=== PATIENT | female | born 1960 | race Caucasian/White ===

== ENCOUNTER 2018-07-26 06:05 | Day surgery (SDC) | payer BC ==
[~2018-07-26] VITALS: Ht 154.9 cm; Wt 71.0 kg
[~2018-07-26 06:05] MED LIST: CALC1TAB75 PO; ESTR1PAT7 TD; FLUT15.88 NS; MULT1TAB52 PO; PANT20TA2 PO
[2018-07-26] MEDS ORDERED: MORPHINE SULFATE 2 MG/ML VIAL. IV PRN (07:00)
[2018-07-26] MEDS ORDERED: ONDANSETRON PF 4 MG/2 ML VIAL. IV PRN (07:00)
[2018-07-26] MEDS ORDERED: IV RINGERS,LACTATED 1000ML 1,000 ML IV SCH (07:00)
[2018-07-26] MEDS ORDERED: fentaNYL PF VIAL 100 MCG/2 ML VIAL IV PRN (07:00)
[2018-07-26] MEDS ORDERED: HYDROmorphone 2 MG/ML VIAL IV PRN (07:00)
[2018-07-26] MEDS ORDERED: fentaNYL PF VIAL 100 MCG/2 ML VIAL ONE ×2 (07:17→08:46)
[2018-07-26] MEDS ORDERED: ROCURONIUM 50 MG/5 ML VIAL. ONE (07:17)
[2018-07-26] MEDS ORDERED: SEVOFLURANE 61 TO 120 MINUTES. IH ONE (07:18)
[2018-07-26] MEDS ORDERED: ONDANSETRON PF 4 MG/2 ML VIAL. ONE (07:18)
[2018-07-26] MEDS ORDERED: PROPOFOL 20 ML IV ONE (07:18)
[2018-07-26] MEDS ORDERED: LIDOCAINE 2% PF 5 ML VIAL. ONE (07:18)
[2018-07-26] MEDS ORDERED: MIDAZOLAM HCL/PF 2 MG/2 ML VIAL. ONE (07:19)
[2018-07-26] MEDS ORDERED: FAMOTIDINE 20 MG/2 ML VIAL ONE (07:40)
[2018-07-26] MEDS ORDERED: ePHEDrine PF IN SALINE 50 MG/10 ML SYRINGE. IV ONE (07:46)
[2018-07-26] MEDS ORDERED: KETOROLAC 30 MG/ML INJ FOR OR. INJ ONE (07:48)
[2018-07-26] MEDS ORDERED: ceFAZolin 2GM PREMIX 2 GM/50 ML BAG IV ONE (08:00)
[2018-07-26] MEDS ORDERED: PROCHLORPERAZINE 10 MG/2 ML VIAL. ONE (08:46)
--- NOTE | 2018-07-26 08:48 | PDOC4 ---
Operative Note Operative Note Operative Note: Preoperative Diagnosis: Ventral hernia Postoperative Diagnosis: Same Procedure: Ventral hernia repair with mesh Surgeon: Albaro Retention Manager: Selin VINCENT Anesthesia: Gen. EBL: 10 mL Specimen: None Drains: None Complications: None Indication: The patient is a 58-year-old female who was referred due to a ventral hernia located superior to the umbilicus. She was offered surgical treatment and we discussed the use of mesh. The risks of surgery were noted which include bleeding, infection, recurrence, pain, anesthetic risk, visceral injury, potential need for additional surgery or procedure. She understands and would like to proceed. Description: The patient was taken to the operating room and placed supine on the operating table. Gen. anesthesia was performed. The abdomen was prepped with ChloraPrep and draped with sterile towels, sheets, and an Ioban. A small vertical incision was made overlying the hernia which was superior to the umbilicus. Cautery dissection was carried down to the fascia. The edges of the fascial defect were clearly delineated and all scar tissue was mobilized. The peritoneal plane was developed with blunt dissection circumferentially around the periphery of the hernia defect. A medium sized Ventralex ST mesh was then placed in this newly formed plane. The mesh rested well providing full coverage and overlap in all directions. The mesh was sutured at the 12, 3, 6, 9:00 positions using 0 Prolene in a horizontal mattress fashion. The fascial edges were closed over the mesh with 0 Prolene. The deep subcutaneous layer was approximated with 0 Vicryl. The more superficial subcutaneous cutaneous tissues closed with 3-0 Vicryl and skin was closed with 4-0 Monocryl. Steri-Strips and a sterile dressing were applied. The patient tolerated the procedure well and was sent to the recovery room in stable condition. At the end of the case all counts were correct. ABEL RAMOS MD Jul 26, 2018 08:48
--- NOTE | 2018-07-26 08:50 | DISCH ---
DISCHARGE INSTRUCTIONS Condition on Discharge Condition on Discharge: Stable Activity After Discharge Activity Instructions for Disc: Other, see below (no lifting over 20 lbs or strenuous activity) Driving Instructions after Dis: Other, see below (no driving while taking pain meds) Diet after Discharge Diet after Discharge: Regular Wound Incision Care Wound/Incision Care: Other, see below (keep dressing clean and dry for 72 hours , may then remove and shower) Follow-Up Follow up with: Dr Ramos in 2 weeks in office, call for appt [phone] ABEL RAMOS MD Jul 26, 2018 08:50
[2018-07-26] MEDS: PROCHLORPERAZINE 10 MG/2 ML VIAL. IV PRN ×2 (09:17→09:45)
[2018-07-26] MEDS: fentaNYL PF VIAL 100 MCG/2 ML VIAL IV PRN ×2 (09:17→09:38)
[2018-07-26] MEDS ORDERED: oxyCODONE/APAP 5/325 1 TAB TABLET PO ONE ×2 (09:30)
[2018-07-26] MEDS ORDERED: OXYC1TAB15 PO (09:41)
[2018-07-26] MEDS ORDERED: ALBUTEROL SULFATE 2.5 MG/3 ML NEBU. NEB ONE (10:15)
[2018-07-26 11:10] VITALS: BP 125/67
== END 2018-07-26 11:23 | disposition home or self-care (01) ==
LOC: SURG 06:05
PROVIDERS: ATTEND Surgery
DX: K43.9 Ventral hernia without obstruction or gangrene (principal); E78.00 Pure hypercholesterolemia, unspecified; Z90.710 Acquired absence of both cervix and uterus; Z98.890 Other specified postprocedural states; Z83.3 Family history of diabetes mellitus; F17.210 Nicotine dependence, cigarettes, uncomplicated; Z72.89 Other problems related to lifestyle; Z79.899 Other long term (current) drug therapy
CPT/HCPCS: 49560; 49568; 94640; C1781; J0171; J0696; J0780; J1885; J2001; J2250; J2405; J2704; J3010; J3490; J7613